=== PATIENT | male | born 1960 | race Two or more races ===

== ENCOUNTER 2018-05-19 14:59 | Emergency (ER) | payer SELFPAY ==
--- OUTSIDE RECORDS SUMMARY | 2018-05-19 15:01 | XMS REPORT | Clinical Summary ---
:1960 Author Organization [facility] Address [address] [place] [address] Phone Care Team Providers Name Role Phone Unavailable Primary Care Provider Unavailable Allergies Not on File Current Medications Not on file Active Problems Not on file Social History Tobacco Use Types Packs/Day Years Used Date Never Assessed Sex Assigned at Date Recorded Not on file Last Filed Vital Signs Not on file Plan of Treatment Not on file Results Not on fileafter 05/18/2017
[2018-05-19] MEDS ORDERED: LIDOCAINE 1% MPF 5 ML VIAL ONE (17:23)
[2018-05-19] MEDS ORDERED: HYDROCODONE/APAP 5/325 MG TAB ONE (17:23)
--- NOTE | 2018-05-19 18:09 | EDPHYS ---
Physician Documentation [facility] Name: Roosevelt Shen Age: 57 yrs Sex: Male : 1960 Arrival Date: 05/19/2018 Time: 15:03 Bed 27 Private MD: None, None ED Physician Brady Ye HPI: 05/19 18:00 This 57 yrs old Male presents to ER via Ambulatory with complaints of Abscess. pm1 18:00 The patient presents with an abscess of the lateral aspect of left knee. Description: pm1 draining, pointed, raised. Onset: The symptoms/episode began/occurred 2 day(s) ago. Possible cause(s): unknown, insect sting. Associated signs and symptoms: Pertinent positives: drainage, Pertinent negatives: fever. Modifying factors: the symptoms are alleviated by squeezing the lesion and expressing the contents, the symptoms are aggravated by squeezing the lesion and expressing the contents, touching. Severity of symptoms: in the emergency department the symptoms are unchanged. The patient has not experienced similar symptoms in the past. Historical: - Allergies: 15:38 No Known Allergies; aj1 - Home Meds: 15:38 None [Active]; aj1 - PMHx: 15:38 Hypertension; aj1 - PSHx: 15:38 Hernia repair; aj1 - Immunization history:: Flu vaccine is up to date. - Social history:: Smoking status: Patient uses tobacco products, denies chronic smoking, but will smoke occasionally. - Ebola Screening: : Patient denies travel to an Ebola-affected area in the 21 days before illness onset. ROS: 18:00 Constitutional: Negative for fever, chills, and weight loss, Eyes: Negative for injury, pm1 pain, redness, and discharge, ENT: Negative for injury, pain, and discharge, Neck: Negative for injury, pain, and swelling, Cardiovascular: Negative for chest pain, palpitations, and edema, Respiratory: Negative for shortness of breath, cough, wheezing, and pleuritic chest pain, Abdomen/GI: Negative for abdominal pain, nausea, vomiting, diarrhea, and constipation, Back: Negative for injury and pain, MS/Extremity: Negative for injury and deformity. 18:00 Neuro: Negative for headache, weakness, numbness, tingling, and seizure. 18:00 Skin: Positive for abscess. Exam: 18:00 Constitutional: This is a well developed, well nourished patient who is awake, alert, pm1 and in no acute distress. Head/Face: Normocephalic, atraumatic. Neck: Trachea midline, no thyromegaly or masses palpated, and no cervical lymphadenopathy. Supple, full range of motion without nuchal rigidity, or vertebral point tenderness. No Meningismus. Chest/axilla: Normal chest wall appearance and motion. Nontender with no deformity. No lesions are appreciated. Cardiovascular: Regular rate and rhythm with a normal S1 and S2. No gallops, murmurs, or rubs. Normal PMI, no JVD. No pulse deficits. Respiratory: Lungs have equal breath sounds bilaterally, clear to auscultation and percussion. No rales, rhonchi or wheezes noted. No increased work of breathing, no retractions or nasal flaring. Abdomen/GI: Soft, non-tender, with normal bowel sounds. No distension or tympany. No guarding or rebound. No evidence of tenderness throughout. Back: No spinal tenderness. No costovertebral tenderness. Full range of motion. 18:00 Musculoskeletal/extremity: Extremities: all appear grossly normal, with no appreciated pain with palpation, ROM: full active range of motion, in the left knee, nonpainful FROM to left knee. 18:00 Skin: Appearance: normal except for affected area, abscess, that is small, of the lateral aspect of left knee, with drainage, with fluctuance, no surrounding cellulitis. 18:00 Neuro: Orientation: is normal, Motor: moves all fours. Vital Signs: 15:38 BP 120 / 80; Pulse 105; Resp 18; Temp 98.9; Pulse Ox 96% on R/A; Weight 86.18 kg (R); aj1 Height 5 ft. 9 in. (175.26 cm) (R); Pain 8/10; 17:04 BP 116 / 76; Pulse 93; Resp 18; Pulse Ox 97% on R/A; Pain 4/10; mg2 18:04 BP 109 / 66; Pulse 90; Resp 18; Pulse Ox 99% ; Pain 3/10; mg2 15:38 Body Mass Index 28.06 (86.18 kg, 175.26 cm) aj Procedures: 18:12 I \T\ D: Incision and drainage was performed for an abscess of the left lateral aspect of pm1 left knee Prepped with Betadine, Anesthetized with 5 ml's 1% Lidocaine. Incised with #11 blade. Drained small amount purulent fluid. Cultures obtained. Abscess cavity explored. Packed with too small to pack. Dressing: sterile 4x4 gauze, the patient tolerated the procedure well. MDM: 16:41 Patient medically screened. pm1 18:07 Data reviewed: vital signs. Data interpreted: Pulse oximetry: on room air is 99 %. pm1 Interpretation: normal. Counseling: I had a detailed discussion with the patient and/or guardian regarding: the historical points, exam findings, and any diagnostic results supporting the discharge/admit diagnosis, the need for outpatient follow up, to return to the emergency department if symptoms worsen or persist or if there are any questions or concerns that arise at home. 05/19 17:16 Order name: Wound Culture pm1 05/19 17:16 Order name: I\T\D Setup; Complete Time: 17:18 pm1 Administered Medications: 17:21 Drug: [place] 5 mg-325 mg 1 tabs Route: PO; mg2 17:59 Follow up: Response: No adverse reaction; Pain is decreased mg2 18:11 Drug: Lidocaine (1 %) 5 ml Volume: 5 ml; Route: Infiltration; mg2 Disposition: 05/20 14:14 Co-signature as Attending Physician, Brady Ye MD I agree with the assessment and kdr plan of care. Disposition: 05/19/18 18:09 Discharged to Home. Impression: Cutaneous abscess of left lower limb. - Condition is Stable. - Discharge Instructions: Abscess, Incision and Drainage. - Prescriptions for Tylenol- Codeine #3 300-30 mg Oral Tablet - take 2 tablets by ORAL route every 6 hours As needed; 20 tablet. Bactrim DS 800- 160 mg Oral Tablet - take 1 tablet by ORAL route every 12 hours for 10 days; 20 tablet. - Medication Reconciliation Form, Thank You Letter, Antibiotic Education, Prescription Opioid Use form. - Follow up: Emergency Department; When: As needed; Reason: Worsening of condition. Follow up: Private Physician; When: 2 - 3 days; Reason: Recheck today's complaints, Continuance of care, Re-evaluation by your physician. - Problem is new. - Symptoms have improved. Signatures: Dis[facility] Lachelle Oshea RN RN aj1 Brady Ye MD MD kdr Rahat Krishnan, [employer] pm1 Alfredo Alejandra RN RN mg2 Corrections: (The following items were deleted from the chart) 05/19 18:30 18:09 05/19/2018 18:09 Discharged to Home. Impression: Cutaneous abscess of left lower mg2 limb. Condition is Stable. Forms are Medication Reconciliation Form, Thank You Letter, Antibiotic Education, Prescription Opioid Use. Follow up: Emergency Department; When: As needed; Reason: Worsening of condition. Follow up: Private Physician; When: 2 - 3 days; Reason: Recheck today's complaints, Continuance of care, Re-evaluation by your physician. Problem is new. Symptoms have improved. pm1
--- NOTE | 2018-05-19 18:09 | ER ---
Nurse's Notes [facility] Name: Roosevelt Shen Age: 57 yrs Sex: Male : 1960 Arrival Date: 05/19/2018 Time: 15:03 Bed 27 Private MD: None, None Diagnosis: Cutaneous abscess of left lower limb Presentation: 05/19 15:37 Presenting complaint: Patient states: Reports abscess behind left knee for the last 5 aj1 days. Transition of care: patient was not received from another setting of care. Onset of symptoms was May 14, 2018. Risk Assessment: Do you want to hurt yourself or someone else? Patient reports no desire to harm self or others. Initial Sepsis Screen: Does the patient meet any 2 criteria? No. Patient's initial sepsis screen is negative. Does the patient have a suspected source of infection? No. Patient's initial sepsis screen is negative. Care prior to arrival: None. 15:37 Method Of Arrival: Ambulatory aj1 15:37 Acuity: LARRY 4 aj1 Triage Assessment: 15:38 General: Appears in no apparent distress. comfortable, Behavior is calm, cooperative, aj1 appropriate for age. Pain: Complains of pain in posterior aspect of left knee Pain currently is 8 out of 10 on a pain scale. Neuro: Level of Consciousness is awake, alert, obeys commands. Cardiovascular: Patient's skin is warm and dry. Respiratory: Airway is patent Respiratory effort is even, unlabored, Respiratory pattern is regular, symmetrical. Historical: - Allergies: 15:38 No Known Allergies; aj1 - Home Meds: 15:38 None [Active]; aj1 - PMHx: 15:38 Hypertension; aj1 - PSHx: 15:38 Hernia repair; aj1 - Immunization history:: Flu vaccine is up to date. - Social history:: Smoking status: Patient uses tobacco products, denies chronic smoking, but will smoke occasionally. - Ebola Screening: : Patient denies travel to an Ebola-affected area in the 21 days before illness onset. Screenin:06 Abuse screen: Denies threats or abuse. Denies injuries from another. Nutritional mg2 screening: No deficits noted. Tuberculosis screening: No symptoms or risk factors identified. Fall Risk No IV (0 pts). Assessment: 17:05 General: Appears in no apparent distress. comfortable, Behavior is calm, cooperative. mg2 Pain: Complains of pain in posterior aspect of left knee. Neuro: Level of Consciousness is awake, alert, obeys commands, Oriented to person, place, time, situation. Cardiovascular: Capillary refill < 3 seconds Patient's skin is warm and dry. Respiratory: Airway is patent Respiratory effort is even, unlabored, Respiratory pattern is regular, symmetrical. GI: No signs and/or symptoms were reported involving the gastrointestinal system. : No signs and/or symptoms were reported regarding the genitourinary system. EENT: No signs and/or symptoms were reported regarding the EENT system. Derm: Skin is intact, Abscess located on posterior aspect of left knee is quarter sized, is red, is raised. Musculoskeletal: No signs and/or symptoms reported regarding the musculoskeletal system. Vital Signs: 15:38 BP 120 / 80; Pulse 105; Resp 18; Temp 98.9; Pulse Ox 96% on R/A; Weight 86.18 kg (R); aj1 Height 5 ft. 9 in. (175.26 cm) (R); Pain 8/10; 17:04 BP 116 / 76; Pulse 93; Resp 18; Pulse Ox 97% on R/A; Pain 4/10; mg2 18:04 BP 109 / 66; Pulse 90; Resp 18; Pulse Ox 99% ; Pain 3/10; mg2 15:38 Body Mass Index 28.06 (86.18 kg, 175.26 cm) aj1 ED Course: 15:03 Patient arrived in ED. mr 15:03 None, None is Private Physician. mr 15:38 Triage completed. aj1 15:38 Arm band placed on Patient placed in waiting room, Patient notified of wait time. aj1 16:41 Rahat Krishnan NP is PHCP. pm1 16:41 Brady Ye MD is Attending Physician. pm1 17:02 Alfredo Alejandra RN is Primary Nurse. mg2 17:06 Patient has correct armband on for positive identification. Call light in reach. Side mg2 rails up X 1. 18:12 Assist provider with I \T\ D: of an abscess on left thigh Set up I\T\D tray. Performed by mg 2 Rahat Krishnan NP Culture sent to lab. Dressing with Neosporin and coband and 2x2. Patient did not have IV access during this emergency room visit. Administered Medications: 17:21 Drug: [place] 5 mg-325 mg 1 tabs Route: PO; mg2 17:59 Follow up: Response: No adverse reaction; Pain is decreased mg2 18:11 Drug: Lidocaine (1 %) 5 ml Volume: 5 ml; Route: Infiltration; mg2 Outcome: 18:09 Discharge ordered by . pm1 18:24 Discharged to home ambulatory. mg2 18:24 Condition: good 18:24 Discharge instructions given to patient, Instructed on discharge instructions, follow up and referral plans. medication usage, Demonstrated understanding of instructions, follow-up care, medications, Prescriptions given X 2. 18:30 Patient left the ED. mg2 Addendum: 05/22/2018 07:52 Addendum: Culture Results: Positive wound culture. No further action required. Bacteria s s sensitive to prescribed antibiotic. Signatures: Lachelle Oshea, LETY RN aj1 Jocelyne Zhang Shelby, RN RN ss Rahat Krishnan, [place] [employer] RN pm1 Alfredo Alejandra RN RN mg2
== END 2018-05-19 18:30 | disposition home or self-care (01) ==
LOC: ER 14:59
PROC: 0J9P0ZZ Drainage of Left Lower Leg Subcutaneous Tissue and Fascia, Open Approach (ICD-10-PCS; principal; 2018-05-19)
DX: L02.416 Cutaneous abscess of left lower limb (principal); I10 Essential (primary) hypertension
CPT/HCPCS: 87070; 87077; 87186; 87205; 99284